=== PATIENT | female | born 1975 | race Caucasian/White ===

== ENCOUNTER → 2017-05-16 | Outpatient (CLI) | payer OTHER | LOC: FIMAGING 08:38 | PROVIDERS: ATTEND Obstetrics & Gynecology Gynecology | DX: Z12.31 Encounter for screening mammogram for malignant neoplasm of breast (principal); Z80.3 Family history of malignant neoplasm of breast ==

== ENCOUNTER 2017-06-25 18:25 | Emergency (ER) | payer OTHER ==
[2017-06-25 18:32] VITALS: BP 148/95; PULSE 96; RESP 20; TEMP 97.9; O2SAT 99
--- NOTE | 2017-06-25 18:41 | EDPHY ---
H & P Time Seen by Provider: 06/25/17 18:34 HPI/ROS: CHIEF COMPLAINT: Difficulty swallowing HISTORY OF PRESENT ILLNESS: This patinet is a 42 y/o female complaining of difficulty swallowing. Several months ago, she had a strange sensation in her throat and noted white patches in her throat. She was diagnosed with thrush, but her symptoms resolved quickly before starting medication. Yesterday, she developed cold symptoms, and has been taking NyQuil for relief. Today, she has had a similar sensation in her throat to the episode several months ago, but with no white patches. Swallowing has gotten progressively more difficult today. She states it feels like her throat becomes 'stuck' near the base of her neck. She denies any throat pain. She did receive all her regular vaccinations as a child. No fever, shortness of breath, vomiting, abdominal pain, chest pain, or other associated symptoms. REVIEW OF SYSTEMS: A 10 point review of systems was performed and is negative with the exception of the elements mentioned in the history of present illness. Past Medical/Surgical History: Denies. Social History: Nonsmoker. Lives alone in [place]. 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 Smoking Status: Never smoked Physical Exam: General Appearance: Alert, pleasant Eyes: Pupils equal and round, no conjunctival injection ENT, Mouth: Mucous membranes moist Neck: Normal inspection, no stridor Respiratory: Lungs are clear to auscultation Cardiovascular: Regular rate and rhythm Neurological: A&O, nonfocal exam Skin: Warm and dry, no rash Extremities: Normal inspection Psychiatric: Mood and affect normal Constitutional: Initial Vital Signs Temperature (C) 36.6 C 06/25/17 18:28 Heart Rate 96 06/25/17 18:28 Respiratory Rate 20 06/25/17 18:28 Blood Pressure 148/95 H 06/25/17 18:28 O2 Sat (%) 99 06/25/17 18:28 O2 Delivery Mode Room Air Allergies/Adverse Reactions: Sulfa (Sulfonamide Antibiotics) Allergy (Verified 06/25/17 18:26) Home Medications: Medication Instructions Recorded Adderall 10 MG (*) 06/25/17 Valtrex 06/25/17 Wellbutrin 100mg (*) 06/25/17 Xanax 06/25/17 Medical Decision Making - Diagnostics Imaging: I viewed and interpreted images myself ED Course/Re-evaluation: 42 y/o female presents with difficulty swallowing. Exam unremarkable. No pharyngeal swelling or erythema, no stridor, patient is able to speak and swallow secretions without difficultly. Plan for x-ray neck. Soft tissue neck x-ray unremarkable. Results d/w patient. Plan to d/c home in good condition with referral to ENT for further evaluation. Follow up and return precautions discussed. She is comfortable with this plan. Departure - Departure Disposition: Home, Routine, Self-Care Clinical Impression: Throat discomfort Condition: Good Instructions: Additional Information Additional Instructions: 1. Follow up with an Ear, Nose, and Throat specialist next week for further evaluation. 2. Return to the emergency department for shortness of breath, inability to swallow, or other worsening of condition. Referrals: SAM SZYMANSKI [Primary Care Provider] - As per Instructions Corby Bobby MD [Medical Doctor] - As per Instructions Report Scribed for: Cristy Novak Report Scribed by: Eli Paula Date of Report: 06/25/17 Time of Report: 18:42 Physician Review and Approval Statement: 06/25/17 18:42 Portions of this note were transcribed by a medical office receptionist assistant. I personally performed a history, physical exam, medical decision making, and confirmed accuracy of information the transcribed note.
== END 2017-06-25 19:15 | disposition home or self-care (01) ==
DX: R09.89 Other specified symptoms and signs involving the circulatory and respiratory systems (principal)

== ENCOUNTER → 2018-05-19 | Outpatient (CLI) | payer OTHER | LOC: FIMAGING 08:18 | PROVIDERS: ATTEND Obstetrics & Gynecology Gynecology | DX: Z12.31 Encounter for screening mammogram for malignant neoplasm of breast (principal) ==